=== PATIENT | male | born 1945 | race Caucasian/White ===

== ENCOUNTER 2017-09-06 11:47 | Inpatient (IN) | payer MEDICARE ==
[~2017-09-06 11:47] MED LIST: ISOVUE-370 76%-LOCM 1 ML ONE
[2017-09-06 12:53] LABS: Troponin I 0.081 ng/mL (< 0.028)
--- NOTE | 2017-09-06 13:17 | CT ---
CT ARTERIOGRAM CHEST WITH IV CONTRAST AND 3D MIP IMAGING: History Chest pain. Dyspnea. FINDINGS: There is good contrast opacification of the pulmonary arteries and thoracic aorta with normal branch ing of the great vessels. Calcifications are present within the arterial structures. There is atel ectasis and parenchymal scarring involving each lung. No pneumothorax or mediastinal adenopathy are apparent. Within the partially visualized upper abdomen, cysts throughout the liver are similar to prior CT from 2012. IMPRESSION: 1. No CT evidence of pulmonary embolus. 2. Atherosclerosis. POS: [facility]
[2017-09-06] MEDS ORDERED: cefTRIAXone\\ROCEPHIN 1 GM VIAL ONE (14:22)
[2017-09-06] MEDS ORDERED: Sodium Chloride 0.9% 100 ML ONE (14:22)
[2017-09-06 14:29] LABS: Lactic Acid - Sepsis 1.6 mmol/L (0.5-2.2)
[2017-09-06 14:39] LABS: Troponin I 0.058 ng/mL (< 0.028)
[2017-09-06] MEDS ORDERED: Ondansetron ODT 4 MG TAB SL PRN (16:27)
[2017-09-06] MEDS ORDERED: Sodium Chloride 0.9% 1,000 ML IV SCH (16:27)
[2017-09-06] MEDS ORDERED: Ondansetron HCl/PF 4 MG/2 ML Vial IVP PRN ×2 (16:27→16:39)
[2017-09-06] MEDS ORDERED: Bisacodyl 5 MG TAB PO PRN (16:39)
[2017-09-06] MEDS ORDERED: Acetaminophen 325 MG TAB PO PRN (16:39)
[2017-09-06] MEDS ORDERED: Calcium Carbonate 500 MG ChewTAB PO PRN (16:39)
--- NOTE | 2017-09-06 17:34 | HP ---
PRIMARY CARE PHYSICIAN: Dr. Stafford. TELEVISION REPAIR TEACHER: Dr. Kelly. CHIEF COMPLAINT: Weakness. HISTORY OF PRESENT ILLNESS: This is a 72-year-old pleasant gentleman, who was apparently in usual s figueroa of health until about last 2 days, he was doing pretty much which he does on a regular basis, w hich includes driving to the [email or web address], but does not walk much. He can take a bath by himself and fee d himself. He was in his usual state of health when he started having some hallucinations of a kalyan le boy running around, that was on and off, and then he started feeling more weak yesterday. When h debra started to get up from a chair, he fell on the carpet and could not get up. His tried to hel p him up and he pushed himself up as well, giving rise to some carpet smith and some lacerations on his arms and legs. The family was concerned, and hence, he was brought to [facility] where his basic workup was done, which revealed a creatinine of 2.02, and a CTA angiogram was done, which jaimie wed no pulmonary embolism. The patient was transferred to our health facility for evaluation of the weakness. Patient says this is the first time this has happened. PAST MEDICAL HISTORY: Significant for coronary artery disease, status post stent in 2009. Patient also had a history of cardiac arrest in 2009, peripheral vascular disease with stents in both femora l arteries, congestive heart failure, hyperlipidemia, hypertension, obesity, obstructive sleep apnea , and CODP. ALLERGIES: NAPROXEN. PAST SURGICAL HISTORY: As mentioned above, had 2 stents in the coronaries and 2 stents 1 each in th e peripheral femoral vein artery. MEDICATIONS: [place], allopurinol, lisinopril, metolazone, pravastatin, prednisone, Coreg, Plavix. FAMILY HISTORY: Negative for diabetes and hypertension. SOCIAL HISTORY: The patient used to be a long-term smoker, has switched to E-cigarettes for the las t couple of years. Does not drink or do any recreational drugs. Has a very sedentary lifestyle. Sonia conrad also has started having sacral wound ulcers, because of his sedentary lifestyle and has wound care on and off for that. REVIEW OF SYSTEMS: Significant for the weakness and hallucinations; otherwise, no fever, no chills, no headache, no eye pain, no hearing loss, no latencies. No cough, no chest pain, no diarrhea, dys uria or polyuria. No memory or mood changes. No neck pain. PHYSICAL EXAMINATION: VITAL SIGNS: Blood pressure is 140/62; pulse is 119; in the ER was breathing initially fast at 32, right now has come down and breathing at 18; afebrile. GENERAL: Patient is lying in bed in mild distress, because of the pain from the carpet smith. HEENT: Atraumatic, normocephalic. Pupils equally round and reactive to light. Extraocular movemen ts intact. Mucous membranes moist. NECK: No JVD. CHEST: Breath sounds heard. Some bibasilar rales. HEART: S1, S2 normal. No murmurs or gallops. ABDOMEN: Soft, obese. EXTREMITIES: No cyanosis, clubbing, or edema. SKIN: Superficial skin tears are seen, covered with bandages, he has got it since above carpet burn s on both the knees. NEUROLOGIC: He is alert, awake, oriented. No cranial deficits. No sensorimotor deficits. LABORATORY DATA: WBC count is 18, hemoglobin is 14, neutrophils are 79. D-dimer is 6.6. CTA was n egative. Potassium is 4.5, creatinine 2.02. Lactic acid is 1.4. Troponin 0.08. BNP is 202. UA i s negative. UDS positive for opiates. Flu is negative. ASSESSMENT AND PLAN: 1. Systemic inflammatory response syndrome, possibly secondary to infection, etiology is unknown an d a combination of dehydration and acute renal failure. We will give the patient some IV fluids, to gently hydrate the patient. We will hold the diuretics for now and get an echocardiogram. 2. Leukocytosis, possibly secondary to prednisone use, cannot rule out infection at this moment as there is left shift. We will empirically treat with IV vancomycin. Possible source could be the de cubitus ulcers and multiple skin tears. We will do vancomycin and Levaquin for now and do blood cul tures. 3. Acute renal failure secondary to possible dehydration and diuretic use. Hold diuretics and gent ly hydrate the patient. 4. Elevated troponin, possibly secondary to demand ischemia. We will trend troponins and consult C ardiology if needed. 5. History of congestive heart failure. Patient is not short of breath right now. We will do echo cardiogram. 6. Hallucinations. We will give the patient Zyprexa. We will also do CT scan of the head. 7. Chronic obstructive pulmonary disease. We will put the patient on nebulizer treatments. 8. Morbid obesity with possible obstructive sleep apnea, outpatient sleep study. 9. Sacral wound appears to be not infected with no drainage. I will get Wound Care involved. 10. Lovenox for deep venous thrombosis prophylaxis. I will follow the labs and do the needful.
[2017-09-06 17:43] LABS: Troponin I 0.076 ng/mL (< 0.028)
[2017-09-06] MEDS ORDERED: OLANZapine 2.5 MG TAB PO SCH (18:00)
[2017-09-06] MEDS: Sodium Chloride 0.9% 1,000 ML IV SCH (19:16)
[2017-09-06 20:35] LABS: Troponin I 0.053 ng/mL (< 0.028)
[2017-09-06] MEDS ORDERED: Vancomycin HCl 1 GM in Sodium Chloride 0.9% 250 ML 250 ML IVPB SCH (21:00)
[2017-09-06] MEDS ORDERED: Vancomycin HCl 1.5 GM in Sodium Chloride 0.9% 250 ML 300 ML IVPB SCH (22:00)
[2017-09-06] MEDS: HYDROcodone/Acetaminophen 5/325 mg Tablet PO PRN (22:31)
[2017-09-06 23:16] LABS: Troponin I 0.045 ng/mL (< 0.028)
[2017-09-07] MEDS: HYDROcodone/Acetaminophen 5/325 mg Tablet PO PRN ×4 (03:34→23:34)
[2017-09-07 06:41] LABS: #Basophils 0.1 thou/uL (0.0-0.2); #Eosinphils 0.1 thou/uL (0.0-0.7); #Lymphocytes 1.8 thou/uL (1.20-3.40); #Monocytes 1.7 thou/uL (0.11-0.59); #Neutrophils 13.5 thou/uL (1.40-6.50); %Basophils 0.3 % (0.0-1.0); %Eosinophils 0.4 % (0.0-10.0); %Lymphocytes 10.2 % (21.0-51.0); %Monocytes 10.1 % (0.0-10.0); Hematocrit 46.3 % (42.0-52.0); Mean Platelet Volume 8.5 fL (7.4-10.4); Red Blood Cell (RBC) Count 4.97 mill/uL (4.70-6.10); White Blood Cell (WBC) Count 17.1 thou/uL (4.8-10.8)
[2017-09-07 07:02] LABS: Anion Gap 16 mmol/L (10-20); BUN (Urea Nitrogen) 22 mg/dL (8.4-25.7); BUN/Creatinine Ratio 13.84; Calc. Creatinine Clearance 68 mL/min (70-130); Calcium 9.9 mg/dL (7.8-10.44); Carbon Dioxide 22 mmol/L (23-31); Chloride 103 mmol/L (98-107); Estimated GFR-MDRD 43; Phosphorus 2.6 mg/dL (2.3-4.7)
[2017-09-07] MEDS ORDERED: OLANZapine 2.5 MG TAB PO SCH (09:00)
[2017-09-07] MEDS: Enoxaparin Sodium 30 MG/0.3 ML SYRINGE SC SCH (09:28)
[2017-09-07] MEDS: Sodium Chloride 0.9% 1,000 ML IV SCH ×2 (11:43→13:11)
--- NOTE | 2017-09-07 12:24 | MRI ---
NONCONTRAST ENHANCED MRI IMAGES BRAIN: HISTORY: Fall. Altered mental status. Hypertension. Hallucinations. FINDINGS: Multiplanar, multisequence noncontrast-enhanced MRI images of the brain demonstrate no evidence of a cute intracranial masses, hemorrhages, strokes, or contusions seen. No evidence of sub- or epidural hematoma. Normal flow voids are seen in the major intracranial vessels. No areas of T2 signal inc reased changes seen. IMPRESSION: Normal noncontrast-enhanced MRI images of the brain with no significant evidence of intracranial pat hology seen. POS: [facility]
[2017-09-07] MEDS: Allopurinol 100 MG TAB PO SCH ×2 (16:46→21:41)
--- NOTE | 2017-09-07 16:54 | PDOC.PN ---
- Subjective Encounter Start Date: 09/07/17 Encounter Start Time: 16:50 still hallucinating feels stronger today no n/v no cp/sob - Objective MAR Reviewed: Yes Vital Signs & Weight: Vital Signs (12 hours) Temp Pulse Pulse Pulse Resp BP BP 09/07/17 14:27 116 H 120 H 168/98 H 158/110 H 09/07/17 13:15 19 09/07/17 12:55 99.2 F 110 H 26 H 09/07/17 08:58 98.3 F 109 H BP Pulse Ox 09/07/17 14:27 09/07/17 13:15 96 09/07/17 12:55 135/88 91 L 09/07/17 08:58 164/91 H 96 I&O: 09/06/17 09/07/17 09/08/17 06:59 06:59 06:59 Intake Total 1715 Balance 1715 Result Diagrams: 09/07/17 05:54 09/07/17 05:54 Additional Labs: Accuchecks 09/06/17 21:16 POC Glucose 125 H Phys Exam - Physical Examination Constitutional: NAD HEENT: PERRLA Neck: no JVD Respiratory: no wheezing Cardiovascular: no significant murmur Gastrointestinal: soft Musculoskeletal: pulses present Neurological: normal sensation Psychiatric: A&O x 3 Dx/Plan (1) ARF (acute renal failure) Status: Acute (2) Weakness Code(s): R53.1 - WEAKNESS Status: Acute (3) COPD (chronic obstructive pulmonary disease) Status: Acute (4) Decubital ulcer Code(s): L89.90 - PRESSURE ULCER OF UNSPECIFIED SITE, UNSPECIFIED STAGE Status : Acute (5) Tinea cruris Code(s): B35.6 - TINEA CRURIS Status: Acute (6) SIRS (systemic inflammatory response syndrome) Code(s): R65.10 - SIRS OF NON-INFECTIOUS ORIGIN W/O ACUTE ORGAN DYSFUNCTION Status: Acute (7) Bacteremia Code(s): R78.81 - BACTEREMIA Status: Acute (8) Leucocytosis Code(s): D72.829 - ELEVATED WHITE BLOOD CELL COUNT, UNSPECIFIED Status: Acute (9) Elevated troponin Code(s): R74.8 - ABNORMAL LEVELS OF OTHER SERUM ENZYMES Status: Acute (10) Obesity (BMI 30.0-34.9) Code(s): E66.9 - OBESITY, UNSPECIFIED Status: Acute (11) Hallucination Code(s): R44.3 - HALLUCINATIONS, UNSPECIFIED Status: Acute - Plan * increase dose of zyprexa to 5 mg daily * add diflucan * cont abx for 2 more days * pt/ot * f/u echo
[2017-09-07] MEDS ORDERED: HumaLOG 300 UNITS/3 ML VIAL SC PRN (17:35)
[2017-09-07] MEDS ORDERED: Dextrose 5% in Water 1,000 ML IV PRN (17:35)
[2017-09-07] MEDS ORDERED: Dextrose 50% Abboject 50 ML SYRINGE SLOW IVP PRN (17:35)
[2017-09-07] MEDS: OLANZapine 2.5 MG TAB PO SCH (17:56)
[2017-09-07] MEDS ORDERED: Zolpidem Tartrate 5 MG TAB PO SCH (21:30)
[2017-09-07] MEDS: Pravastatin Sodium 40 MG TAB PO SCH (21:41)
[2017-09-07] MEDS: Nystatin Powder 15 GM BOT TOP SCH (21:42)
[2017-09-07] MEDS: Carvedilol 6.25 MG TAB PO SCH (21:42)
[2017-09-07] MEDS: Vancomycin HCl 1.75 GM in Sodium Chloride 0.9% 500 ML IVPB SCH (23:22)
[2017-09-08 05:58] LABS: #Basophils 0.1 thou/uL (0.0-0.2); #Eosinphils 0.2 thou/uL (0.0-0.7); #Lymphocytes 1.1 thou/uL (1.20-3.40); #Monocytes 1.2 thou/uL (0.11-0.59); #Neutrophils 8.2 thou/uL (1.40-6.50); %Basophils 0.7 % (0.0-1.0); %Eosinophils 1.9 % (0.0-10.0); %Lymphocytes 10.3 % (21.0-51.0); %Monocytes 10.9 % (0.0-10.0); Hematocrit 40.2 % (42.0-52.0); Mean Platelet Volume 8.3 fL (7.4-10.4); Red Blood Cell (RBC) Count 4.24 mill/uL (4.70-6.10); White Blood Cell (WBC) Count 10.8 thou/uL (4.8-10.8)
[2017-09-08 06:18] LABS: Anion Gap 12 mmol/L (10-20); BUN (Urea Nitrogen) 25 mg/dL (8.4-25.7); BUN/Creatinine Ratio 17.86; Calc. Creatinine Clearance 77 mL/min (70-130); Calcium 9.5 mg/dL (7.8-10.44); Carbon Dioxide 25 mmol/L (23-31); Chloride 103 mmol/L (98-107); Estimated GFR-MDRD 50; Phosphorus 3.3 mg/dL (2.3-4.7)
[2017-09-08] MEDS ORDERED: predniSONE 5 MG TAB PO SCH (09:00)
[2017-09-08] MEDS: Allopurinol 100 MG TAB PO SCH ×3 (09:15→21:20)
[2017-09-08] MEDS: Lisinopril 2.5 MG TAB PO SCH (09:15)
[2017-09-08] MEDS: Fluconazole 100 MG TAB PO SCH (09:15)
[2017-09-08] MEDS: predniSONE 5 MG TAB PO SCH (09:16)
[2017-09-08] MEDS: Clopidogrel Bisulfate 75 MG TAB PO SCH (09:16)
[2017-09-08] MEDS: Carvedilol 6.25 MG TAB PO SCH ×2 (09:16→21:20)
[2017-09-08] MEDS: Enoxaparin Sodium 30 MG/0.3 ML SYRINGE SC SCH (09:17)
[2017-09-08] MEDS: Nystatin Powder 15 GM BOT TOP SCH ×2 (09:24→21:24)
--- NOTE | 2017-09-08 13:01 | PDOC.PN ---
- Subjective Encounter Start Date: 09/08/17 Encounter Start Time: 12:59 doing better but still feels weak still having visual hallucinations no n/v no f/c - Objective MAR Reviewed: Yes Vital Signs & Weight: Vital Signs (12 hours) Temp Pulse Resp BP BP Pulse Ox 09/08/17 09:15 110 H 164/97 H 09/08/17 09:14 98.7 F 09/08/17 08:20 110 H 18 164/97 H 95 09/08/17 04:00 93 18 136/82 97 Weight Weight 270 lb 14.4 oz I&O: 09/07/17 09/08/17 09/09/17 06:59 06:59 06:59 Intake Total 1715 3110 Output Total 420 Balance 1715 2690 Result Diagrams: 09/08/17 05:27 09/08/17 05:27 Additional Labs: Accuchecks 09/08/17 09/08/17 09/07/17 11:24 06:46 21:06 POC Glucose 156 H 214 H 128 H 09/07/17 09/07/17 17:14 11:19 POC Glucose 174 H 151 H Phys Exam - Physical Examination Constitutional: NAD HEENT: moist MMs Neck: no JVD Respiratory: no rales Cardiovascular: no significant murmur Gastrointestinal: non-tender Musculoskeletal: pulses present Neurological: moves all 4 limbs Psychiatric: A&O x 3 Deviation from normal: e/o rug smith on knee and elbow. sacral decub ulcer Dx/Plan (1) ARF (acute renal failure) Status: Acute (2) Weakness Code(s): R53.1 - WEAKNESS Status: Acute (3) COPD (chronic obstructive pulmonary disease) Status: Acute (4) Decubital ulcer Code(s): L89.90 - PRESSURE ULCER OF UNSPECIFIED SITE, UNSPECIFIED STAGE Status : Acute (5) Tinea cruris Code(s): B35.6 - TINEA CRURIS Status: Acute (6) SIRS (systemic inflammatory response syndrome) Code(s): R65.10 - SIRS OF NON-INFECTIOUS ORIGIN W/O ACUTE ORGAN DYSFUNCTION Status: Acute (7) Bacteremia Code(s): R78.81 - BACTEREMIA Status: Acute (8) Leucocytosis Code(s): D72.829 - ELEVATED WHITE BLOOD CELL COUNT, UNSPECIFIED Status: Resolved (9) Elevated troponin Code(s): R74.8 - ABNORMAL LEVELS OF OTHER SERUM ENZYMES Status: Acute (10) Obesity (BMI 30.0-34.9) Code(s): E66.9 - OBESITY, UNSPECIFIED Status: Acute (11) Hallucination Code(s): R44.3 - HALLUCINATIONS, UNSPECIFIED Status: Acute - Plan * elevated wbc resolved with emperic abx rx. culture not conclusive. cont abx for one more day * cr improving * cont pt/ot * recommend out pt pscyh eval if hallucinations persist * disposition- most likely home with * cont wound care * case mx to help with out pt wound care
[2017-09-08] MEDS: Sodium Chloride 0.9% 1,000 ML IV SCH (17:56)
[2017-09-08] MEDS: OLANZapine 2.5 MG TAB PO SCH (18:00)
[2017-09-08] MEDS: Pravastatin Sodium 40 MG TAB PO SCH (21:20)
[2017-09-08] MEDS: HYDROcodone/Acetaminophen 5/325 mg Tablet PO PRN (21:21)
[2017-09-08 21:33] LABS: Vancomycin, Trough 10.6 ug/mL
[2017-09-08] MEDS: Vancomycin HCl 1.75 GM in Sodium Chloride 0.9% 500 ML IVPB SCH (23:48)
[2017-09-09] MEDS: Sodium Chloride 0.9% 1,000 ML IV SCH ×2 (00:10→08:12)
[2017-09-09 05:34] LABS: #Eosinphils 0.1 thou/uL (0.0-0.7); #Monocytes 0.9 thou/uL (0.11-0.59); #Neutrophils 6.9 thou/uL (1.40-6.50); %Basophils 0.5 % (0.0-1.0); %Eosinophils 1.5 % (0.0-10.0); %Lymphocytes 11.1 % (21.0-51.0); %Monocytes 10.2 % (0.0-10.0); Hematocrit 38.8 % (42.0-52.0); Mean Platelet Volume 8.3 fL (7.4-10.4); Red Blood Cell (RBC) Count 4.03 mill/uL (4.70-6.10)
[2017-09-09 05:52] LABS: Anion Gap 12 mmol/L (10-20); BUN (Urea Nitrogen) 26 mg/dL (8.4-25.7); BUN/Creatinine Ratio 18.71; Calc. Creatinine Clearance 82 mL/min (70-130); Calcium 9.5 mg/dL (7.8-10.44); Carbon Dioxide 24 mmol/L (23-31); Chloride 105 mmol/L (98-107); Estimated GFR-MDRD 50; Phosphorus 2.6 mg/dL (2.3-4.7)
[2017-09-09] MEDS: HYDROcodone/Acetaminophen 5/325 mg Tablet PO PRN ×3 (05:59→21:23)
--- NOTE | 2017-09-09 06:41 | EKG ---
Test Reason : Blood Pressure : / mmHG Vent. Rate : 101 BPM Atrial Rate : 101 BPM P-R Int : 232 ms QRS Dur : 088 ms QT Int : 372 ms P-R-T Axes : 074 101 045 degrees QTc Int : 482 ms Sinus tachycardia with 1st degree A-V block with occasional Premature ventricular complexes Possible Right ventricular hypertrophy Nonspecific ST abnormality Abnormal ECG Confirmed by VINEET LUU, ANILA ([id number]), deputy editor in chief BETTY MEI ([id number]) on 09/09/2017 6:41:22 AM Referred By: Confirmed By:ANILA MANLEY MD
[2017-09-09] MEDS: Enoxaparin Sodium 30 MG/0.3 ML SYRINGE SC SCH (09:24)
[2017-09-09] MEDS: Fluconazole 100 MG TAB PO SCH (09:29)
[2017-09-09] MEDS: predniSONE 5 MG TAB PO SCH (09:30)
[2017-09-09] MEDS: Clopidogrel Bisulfate 75 MG TAB PO SCH (09:30)
[2017-09-09] MEDS: Carvedilol 6.25 MG TAB PO SCH ×2 (09:30→21:15)
[2017-09-09] MEDS: Allopurinol 100 MG TAB PO SCH ×3 (09:30→21:15)
[2017-09-09] MEDS: Lisinopril 2.5 MG TAB PO SCH (09:30)
[2017-09-09] MEDS: Nystatin Powder 15 GM BOT TOP SCH ×2 (09:31→21:16)
--- NOTE | 2017-09-09 18:53 | PDOC.PN ---
- Subjective Encounter Start Date: 09/09/17 Encounter Start Time: 11:30 Patient seen and examined. No new complaints. No overnight events. Feels better. No Hallucinations - Objective MAR Reviewed: Yes Vital Signs & Weight: Vital Signs (12 hours) Temp Pulse Pulse Resp BP BP BP 09/09/17 16:11 97.7 F 16 152/77 H 09/09/17 15:45 97.7 F 82 20 129/65 09/09/17 14:02 91 24 H 09/09/17 12:44 97.8 F 81 16 106/56 L 09/09/17 10:24 91 122/71 09/09/17 09:30 93 120/71 09/09/17 08:05 99 F 93 18 120/71 09/09/17 07:14 99 20 Pulse Ox 09/09/17 16:11 100 09/09/17 15:45 98 09/09/17 14:02 09/09/17 12:44 94 L 09/09/17 10:24 09/09/17 09:30 09/09/17 08:05 92 L 09/09/17 07:14 95 Weight Admit Weight 259 lb 3.2 oz Weight 272 lb 11.2 oz I&O: 09/08/17 09/09/17 09/10/17 06:59 06:59 06:59 Intake Total 3110 2560 1077 Output Total 420 2270 500 Balance 2690 290 577 Result Diagrams: 09/09/17 05:14 09/09/17 05:14 Additional Labs: Accuchecks 09/09/17 09/08/17 06:37 21:41 POC Glucose 133 H 154 H EKG Reviewed by me: Yes (Tele SR) Phys Exam - Physical Examination Constitutional: NAD Respiratory: no wheezing, no rhonchi Cardiovascular: RRR, no rub Gastrointestinal: soft, non-tender, positive bowel sounds Neurological: moves all 4 limbs Dx/Plan (1) SIRS (systemic inflammatory response syndrome) Code(s): R65.10 - SIRS OF NON-INFECTIOUS ORIGIN W/O ACUTE ORGAN DYSFUNCTION Status: Acute Comment: ?bacteremia (2) Toxic metabolic encephalopathy Code(s): G92 - TOXIC ENCEPHALOPATHY Status: Acute (3) Obesity (BMI 30-39.9) Code(s): E66.9 - OBESITY, UNSPECIFIED Status: Acute (4) CRAIG (acute kidney injury) Code(s): N17.9 - ACUTE KIDNEY FAILURE, UNSPECIFIED Status: Acute Comment: CKD 3 - Plan cont current plan of care, plan discussed w/ family, continue antibiotics, DVT proph w/lovenox * DC Zyprexa - No hallucinations now * Cont Vancomycin * Change Levaquin to Ceftriaxone * Consult ID for ?bacteremia * Cont other meds as below Review of Systems - Review of Systems Respiratory: negative: Cough, Dry, Shortness of Breath, Hemoptysis, SOB with Excertion, Pleuritic Pain, Sputum, Wheezing Cardiovascular: negative: Chest Pain, Palpitations, Orthopnea, Paroxysmal Noc. Dyspnea, Edema, Light Headedness, Other - Medications/Allergies Allergies/Adverse Reactions: Allergies Allergy/AdvReac Type Severity Reaction Status Date / Time naproxen Allergy Verified 09/06/17 19:05 Medications: Current Medications Acetaminophen (Tylenol) 650 mg PO Q4H PRN PRN Reason: Headache/Fever or Pain Hydrocodone Bitart/Acetaminophen ([place] 5/325) 1 tab PO Q4H PRN PRN Reason: Moderate Pain (4-6) Last Admin: 09/09/17 12:48 Dose: 1 tab Albuterol/Ipratropium (Duoneb) 3 ml NEB [id number] [facility] Last Admin: 09/09/17 14:02 Dose: 3 ml Allopurinol (Zyloprim) 100 mg PO TID [facility] Last Admin: 09/09/17 15:54 Dose: 100 mg Bisacodyl (Dulcolax) 10 mg PO DAILYPRN PRN PRN Reason: Constipation Calcium Carbonate (Tums) 1,000 mg PO Q4H PRN PRN Reason: Heartburn or Indigestion Carvedilol (Coreg) 6.25 mg PO BID [facility] Last Admin: 09/09/17 09:30 Dose: 6.25 mg Clopidogrel Bisulfate (Plavix) 75 mg PO DAILY [facility] Last Admin: 09/09/17 09:30 Dose: 75 mg Dextrose/Water (Dextrose 50%) 25 gm SLOW IVP PRN PRN PRN Reason: Hypoglycemia Enoxaparin Sodium (Lovenox) 30 mg SC 0900 [facility] Last Admin: 09/09/17 09:24 Dose: 30 mg Fluconazole (Diflucan) 100 mg PO DAILY [facility] Last Admin: 09/09/17 09:29 Dose: 100 mg Glucagon (Glucagon) 1 mg IM PRN PRN PRN Reason: Hypoglycemia Hydralazine HCl (Apresoline) 10 mg SLOW IVP Q4H PRN PRN Reason: SBP Greater Than 180 Vancomycin HCl 1.75 gm/ Sodium (Chloride) 500 mls @ 250 mls/hr IVPB 2200 [facility] Last Admin: 09/08/17 23:48 Dose: 500 mls Levofloxacin 750 mg/ Device 150 mls @ 100 mls/hr IVPB 1500 [facility] Last Admin: 09/09/17 15:54 Dose: 150 mls Dextrose/Water (D5w) 1,000 mls @ 0 mls/hr IV .Q0M PRN; As Directed PRN Reason: Hypoglycemia Insulin Human Lispro (Humalog) 0 units SC .MILD SLIDING SCALE PRN PRN Reason: Mild Correctional Scale Last Admin: 09/09/17 18:38 Dose: 2 unit Lisinopril (Zestril) 2.5 mg PO DAILY [facility] Last Admin: 09/09/17 09:30 Dose: 2.5 mg Miscellaneous Medication (Pharmacy To Dose) 1 each IVPB PRN PRN PRN Reason: . Nystatin (Mycostatin Powder) 1 gm TOP BID [facility] Last Admin: 09/09/17 09:31 Dose: 1 gm Ondansetron HCl (Zofran) 4 mg IVP Q6H PRN PRN Reason: Nausea/Vomiting Polyethylene Glycol (Miralax) 17 gm PO DAILY [facility] Pravastatin Sodium (Pravachol) 40 mg PO HS [facility] Last Admin: 09/08/17 21:20 Dose: 40 mg Prednisone (Prednisone) 2.5 mg PO DAILY [facility] Last Admin: 09/09/17 09:30 Dose: 2.5 mg Senna/Docusate Sodium (Senokot S) 1 tab PO BID [facility]
[2017-09-09 21:16] LABS: Vancomycin, Trough 14.7 ug/mL
[2017-09-09] MEDS: Senokot S 8.6-50 MG TAB PO SCH (21:16)
[2017-09-09] MEDS: Pravastatin Sodium 40 MG TAB PO SCH (21:16)
[2017-09-09] MEDS: Vancomycin HCl 1.75 GM in Sodium Chloride 0.9% 500 ML IVPB SCH (22:57)
[2017-09-10] MEDS ORDERED: cefTRIAXone\\ROCEPHIN 1 GM in Sodium Chloride 0.9% 100 ML IVPB SCH (07:00)
[2017-09-10] MEDS: OLANZapine 2.5 MG TAB PO SCH (09:50)
[2017-09-10] MEDS: Fluconazole 100 MG TAB PO SCH (09:50)
[2017-09-10] MEDS: predniSONE 5 MG TAB PO SCH (09:51)
[2017-09-10] MEDS: Clopidogrel Bisulfate 75 MG TAB PO SCH (09:51)
[2017-09-10] MEDS: Allopurinol 100 MG TAB PO SCH ×3 (09:51→21:16)
[2017-09-10] MEDS: Carvedilol 6.25 MG TAB PO SCH ×2 (09:51→21:16)
[2017-09-10] MEDS: Senokot S 8.6-50 MG TAB PO SCH ×2 (09:51→21:16)
[2017-09-10] MEDS: Lisinopril 2.5 MG TAB PO SCH (09:53)
[2017-09-10] MEDS: Enoxaparin Sodium 30 MG/0.3 ML SYRINGE SC SCH (09:53)
[2017-09-10] MEDS: Polyethylene Glycol 3350 17 GM Packet PO SCH (10:06)
[2017-09-10] MEDS: HYDROcodone/Acetaminophen 5/325 mg Tablet PO PRN (10:07)
[2017-09-10] MEDS: Nystatin Powder 15 GM BOT TOP SCH ×2 (10:08→21:17)
--- NOTE | 2017-09-10 13:00 | PDOC.PN ---
- Subjective Encounter Start Date: 09/10/17 Encounter Start Time: 10:30 Patient seen and examined. No new complaints. Hallucinations overnight. - Objective MAR Reviewed: Yes Vital Signs & Weight: Vital Signs (12 hours) Temp Pulse Resp BP BP BP Pulse Ox 09/10/17 12:28 98.4 F 95 20 121/65 97 09/10/17 10:56 89 24 H 97 09/10/17 09:53 98 09/10/17 09:51 162/88 H 09/10/17 07:25 98.2 F 98 16 97 09/10/17 07:22 98.2 F 98 16 162/88 H 97 09/10/17 06:44 98 20 98 09/10/17 04:00 98.6 F 91 18 128/85 92 L Weight Admit Weight 259 lb 3.2 oz Weight 275 lb I&O: 09/09/17 09/10/17 09/11/17 06:59 06:59 06:59 Intake Total 2560 1527 Output Total 2270 1000 Balance 290 527 Result Diagrams: 09/09/17 05:14 09/09/17 05:14 Additional Labs: Accuchecks 09/10/17 09/10/17 09/09/17 11:27 05:57 21:01 POC Glucose 178 H 150 H 154 H 09/09/17 09/09/17 16:53 11:43 POC Glucose 173 H 179 H EKG Reviewed by me: Yes (Tele SR) Phys Exam - Physical Examination Constitutional: NAD Respiratory: no wheezing, no rhonchi Cardiovascular: RRR, no rub Gastrointestinal: soft, non-tender, positive bowel sounds Musculoskeletal: edema present several skin lesions Neurological: non-focal, moves all 4 limbs Dx/Plan (1) Sepsis due to cellulitis Code(s): L03.90 - CELLULITIS, UNSPECIFIED; A41.9 - SEPSIS, UNSPECIFIED ORGANISM Status: Acute Comment: with acute organ dysfunction (Encephalopathy) (2) Infected ulcer of skin Code(s): L98.499 - NON-PRESSURE CHRONIC ULCER OF SKIN OF SITES W UNSP SEVERITY; L08.9 - LOCAL INFECTION OF THE SKIN AND SUBCUTANEOUS TISSUE, UNSP Status: Acute (3) Toxic metabolic encephalopathy Code(s): G92 - TOXIC ENCEPHALOPATHY Status: Acute (4) Obesity (BMI 30-39.9) Code(s): E66.9 - OBESITY, UNSPECIFIED Status: Acute (5) CRAIG (acute kidney injury) Code(s): N17.9 - ACUTE KIDNEY FAILURE, UNSPECIFIED Status: Acute Comment: CKD 3 (6) Other issues per previous notes - Plan cont current plan of care, PT/OT, DVT proph w/lovenox, DVT proph w/SCDs * Dc Fluconazole * AM labs * Cont wound care * I d/w Dr Bess - Tomas recommended Levaquin x 1 week * Resume Lasix in AM * Dc [place] in AM * Cont to monitor * DC Vancomycin * Consult Neurology for hallucinations - MRI brain negative - Will restart Zyprexa (Was started on admission for hallucinations - I dced it yesterday) Review of Systems - Review of Systems Constitutional: negative: Fever, Chills, Sweats, Weakness, Malaise, Other Respiratory: negative: Cough, Dry, Shortness of Breath, Hemoptysis, SOB with Excertion, Pleuritic Pain, Sputum, Wheezing Cardiovascular: negative: Chest Pain, Palpitations, Orthopnea, Paroxysmal Noc. Dyspnea, Edema, Light Headedness, Other - Medications/Allergies Allergies/Adverse Reactions: Allergies Allergy/AdvReac Type Severity Reaction Status Date / Time naproxen Allergy Verified 09/06/17 19:05 Medications: Current Medications Acetaminophen (Tylenol) 650 mg PO Q4H PRN PRN Reason: Headache/Fever or Pain Hydrocodone Bitart/Acetaminophen ([place] 5/325) 1 tab PO Q4H PRN PRN Reason: Moderate Pain (4-6) Last Admin: 09/10/17 10:07 Dose: 1 tab Albuterol/Ipratropium (Duoneb) 3 ml NEB [id number] [facility] Last Admin: 09/10/17 10:56 Dose: 3 ml Allopurinol (Zyloprim) 100 mg PO TID [facility] Last Admin: 09/10/17 09:51 Dose: 100 mg Bisacodyl (Dulcolax) 10 mg PO DAILYPRN PRN PRN Reason: Constipation Calcium Carbonate (Tums) 1,000 mg PO Q4H PRN PRN Reason: Heartburn or Indigestion Carvedilol (Coreg) 6.25 mg PO BID [facility] Last Admin: 09/10/17 09:51 Dose: 6.25 mg Clopidogrel Bisulfate (Plavix) 75 mg PO DAILY [facility] Last Admin: 09/10/17 09:51 Dose: 75 mg Dextrose/Water (Dextrose 50%) 25 gm SLOW IVP PRN PRN PRN Reason: Hypoglycemia Enoxaparin Sodium (Lovenox) 30 mg SC 0900 [facility] Last Admin: 09/10/17 09:53 Dose: 30 mg Fluconazole (Diflucan) 100 mg PO DAILY [facility] Last Admin: 09/10/17 09:50 Dose: 100 mg Glucagon (Glucagon) 1 mg IM PRN PRN PRN Reason: Hypoglycemia Hydralazine HCl (Apresoline) 10 mg SLOW IVP Q4H PRN PRN Reason: SBP Greater Than 180 Dextrose/Water (D5w) 1,000 mls @ 0 mls/hr IV .Q0M PRN; As Directed PRN Reason: Hypoglycemia Levofloxacin 500 mg/ Device 100 mls @ 100 mls/hr IVPB Q24HR [facility] Last Admin: 09/10/17 10:10 Dose: 100 mls Insulin Human Lispro (Humalog) 0 units SC .MILD SLIDING SCALE PRN PRN Reason: Mild Correctional Scale Last Admin: 09/09/17 18:38 Dose: 2 unit Lisinopril (Zestril) 2.5 mg PO DAILY [facility] Last Admin: 09/10/17 09:53 Dose: 2.5 mg Miscellaneous Medication (Pharmacy To Dose) 1 each IVPB PRN PRN PRN Reason: . Nystatin (Mycostatin Powder) 1 gm TOP BID [facility] Last Admin: 09/10/17 10:08 Dose: 1 gm Olanzapine (Zyprexa) 2.5 mg PO DAILY [facility] Last Admin: 09/10/17 09:50 Dose: 2.5 mg Ondansetron HCl (Zofran) 4 mg IVP Q6H PRN PRN Reason: Nausea/Vomiting Polyethylene Glycol (Miralax) 17 gm PO DAILY [facility] Last Admin: 09/10/17 10:06 Dose: 17 gm Pravastatin Sodium (Pravachol) 40 mg PO HS [facility] Last Admin: 09/09/17 21:16 Dose: 40 mg Prednisone (Prednisone) 2.5 mg PO DAILY [facility] Last Admin: 09/10/17 09:51 Dose: 2.5 mg Senna/Docusate Sodium (Senokot S) 1 tab PO BID [facility] Last Admin: 09/10/17 09:51 Dose: 1 tab Sodium Chloride (Flush - Normal Saline) 10 ml IVF Q12HR [facility] Last Admin: 09/10/17 09:52 Dose: Not Given Sodium Chloride (Flush - Normal Saline) 10 ml IVF PRN PRN PRN Reason: Saline Flush
[2017-09-10] MEDS ORDERED: Nitroglycerin 0.4 MG TAB (25 Tab Bottle) PO PRN (13:03)
[2017-09-10] MEDS ORDERED: Senokot 8.6 MG TAB PO PRN (13:03)
[2017-09-10] MEDS ORDERED: HumaLOG 300 UNITS/3 ML VIAL SC PRN (13:05)
[2017-09-10] MEDS: Famotidine 20 MG TAB PO SCH (21:16)
--- NOTE | 2017-09-10 23:16 | CON ---
DATE OF CONSULTATION: 09/10/2017 LOCATION: [address] [place] [address] CONSULTING PHYSICIAN: Dr. Pelaez. REASON FOR CONSULTATION: Altered mental status and hallucinations. HISTORY OF PRESENT ILLNESS: The history is obtained from the chart review and from the patient and his daughter who was present at bedside. The patient is a 72-year-old gentleman with past medical h istory of coronary artery disease, status post stent in 2009, history of cardiac arrest in 2009, per ipheral vascular disease, congestive heart failure, dyslipidemia, hypertension, obesity, obstructive sleep apnea, COPD, who uses oxygen and a breathing machine at home, who according to the family mem bers was doing fine up until admission. All of a sudden, he started having hallucinations, where he saw a little boy running around that was on and off and then he had a fall and he started feeling m ore weak. When he started to get up from a chair, he fell on the carpet and could not get up. He i s back tried to help him up and he pushed himself up as well, giving rise to some cockpit smith and some lacerations on his arms and legs, the family was concerned and so he was brought to the [facility] ER where his basic workup was done, which revealed a creatinine of 2.02. A CT angiogram was d one, which showed no pulmonary embolism. The patient was transferred to our hospital for further ev aluation. The patient was subsequently admitted. He was started on Zyprexa for hallucinations and it helped with his hallucinations. His hallucinati ons resolved, so his Zyprexa was discontinued and then patient started having hallucinations again. The patient is currently being treated with antibiotics for possible infection. He was admitted fo r dehydration and acute renal failure. Infectious Disease has also been consulted. According to th e daughter and the patient, he still has hallucination where he sees people coming out from the clos et, he feels like the next room is contaminated with poop, he sees kittens and cat. They deny any p rior history of hallucinations ever. They deny any psychiatric history. He says that he uses his o xygen and breathing machine regularly without any problem. PAST MEDICAL HISTORY: As mentioned in the HPI. ALLERGIES: NAPROXEN. PAST SURGICAL HISTORY: As mentioned above. MEDICATIONS: Please review the chart. FAMILY HISTORY: Negative for diabetes and hypertension. SOCIAL HISTORY: Long-term smoker, has switched to E-cigarettes for the last couple of years. Does not drink or do any recreational drugs. Sedentary lifestyle. Sacral wound ulcers. REVIEW OF SYSTEMS: As mentioned in the HPI, otherwise negative. PHYSICAL EXAMINATION: VITAL SIGNS: Temperature 98.1. The patient has been afebrile since admission, pulse rate 94, respi ratory rate 18, O2 sat 95% on 2 liter nasal oxygen, blood pressure 123/89. GENERAL: Obese male in no apparent distress. HEENT: Normocephalic, atraumatic. Normal sclerae. NECK: Supple. RESPIRATORY: Clear to auscultation bilaterally. CARDIOVASCULAR: Regular rate and rhythm. NEUROLOGIC: The patient is awake, alert, and oriented. He was able to tell me his name, his date o f . He was able to identify his daughter and tell me her name. He said that he was at [facility] in [place]. He said that the current year is 2016. He said current month was October. Speech and language intact. No aphasia noted. He was able to name objects. He was a ble to follow commands. Cranial nerves: Pupils were equal and reactive to light bilaterally. Extr aocular movements intact. Visual jimenez appear to be grossly intact. No facial droop noted. Motor : Normal tone and bulk. The patient had symmetric strength in his upper and lower extremities and he was able to move all his extremities symmetrically. Sensation intact to fine touch throughout. Gait and Romberg not tested. LABORATORY DATA: CBC with normal white cell count. His white cell count on admission was 17.1. Ch emistry: Normal electrolytes, BUN 26, creatinine 1.39, glucose 138. CK 1379. Troponin elevated. TSH normal. IMAGING: The patient had MRI brain done, which was normal with no significant evidence of intracran ial pathology, no acute intracranial process, no hemorrhage, stroke, contusions, no evidence of subd ural or epidural hematoma. Normal flow voids. IMPRESSION: Hallucinations and altered mental status, likely metabolic in nature, likely due to inf ection, dehydration and acute renal failure. RECOMMENDATIONS: 1. As mentioned before, patient's altered mental status and hallucinations could be due to underlyi ng metabolic issues including renal failure, dehydration and infection. 2. MRI of the brain did not show any evidence of acute intracranial abnormality. 3. The patient has been afebrile with no other signs of meningitis, so lumbar puncture will be of l ow yield. 4. We will get an EEG to rule out any seizure activity. 5. Continue medical management per primary team and Infectious Disease specialist. 6. No other recommendations from neurological standpoint. Please call us with questions.
[2017-09-11 05:36] LABS: #Eosinphils 0.1 thou/uL (0.0-0.7); #Lymphocytes 0.9 thou/uL (1.20-3.40); #Monocytes 0.7 thou/uL (0.11-0.59); #Neutrophils 5.7 thou/uL (1.40-6.50); %Basophils 0.5 % (0.0-1.0); %Eosinophils 1.6 % (0.0-10.0); %Lymphocytes 11.8 % (21.0-51.0); %Monocytes 9.4 % (0.0-10.0); Hematocrit 38.5 % (42.0-52.0); Mean Platelet Volume 8.3 fL (7.4-10.4); Red Blood Cell (RBC) Count 4.05 mill/uL (4.70-6.10); White Blood Cell (WBC) Count 7.4 thou/uL (4.8-10.8)
[2017-09-11 05:58] LABS: Anion Gap 11 mmol/L (10-20); BUN (Urea Nitrogen) 20 mg/dL (8.4-25.7); BUN/Creatinine Ratio 16.53; Calc. Creatinine Clearance 95 mL/min (70-130); Calcium 9.9 mg/dL (7.8-10.44); Carbon Dioxide 27 mmol/L (23-31); Chloride 103 mmol/L (98-107); Estimated GFR-MDRD 59; Phosphorus 2.4 mg/dL (2.3-4.7)
[2017-09-11] MEDS ORDERED: Enoxaparin Sodium 40 MG/0.4 ML SYRINGE SC SCH (09:00)
[2017-09-11] MEDS ORDERED: Furosemide 40 MG TAB PO SCH (09:00)
[2017-09-11] MEDS: Nystatin Powder 15 GM BOT TOP SCH ×2 (10:30→22:29)
[2017-09-11] MEDS: Polyethylene Glycol 3350 17 GM Packet PO SCH (10:31)
[2017-09-11] MEDS: Lisinopril 2.5 MG TAB PO SCH (10:31)
[2017-09-11] MEDS: Clopidogrel Bisulfate 75 MG TAB PO SCH (10:31)
[2017-09-11] MEDS: Allopurinol 100 MG TAB PO SCH ×3 (10:31→22:23)
[2017-09-11] MEDS: Senokot S 8.6-50 MG TAB PO SCH ×2 (10:32→22:24)
[2017-09-11] MEDS: Famotidine 20 MG TAB PO SCH ×2 (10:32→22:24)
[2017-09-11] MEDS: Carvedilol 6.25 MG TAB PO SCH ×2 (10:32→22:23)
[2017-09-11] MEDS: OLANZapine 2.5 MG TAB PO SCH (10:33)
[2017-09-11] MEDS: predniSONE 5 MG TAB PO SCH (10:33)
[2017-09-11] MEDS: HYDROcodone/Acetaminophen 5/325 mg Tablet PO PRN (10:40)
--- NOTE | 2017-09-11 11:40 | PDOC.PN ---
- Subjective Encounter Start Date: 09/11/17 Encounter Start Time: 11:37 Patient seen and examined. Hallucination +. No overnight events - Objective Resuscitation Status: Resuscitation Status FULL:Full Resuscitation MAR Reviewed: Yes Vital Signs & Weight: Vital Signs (12 hours) Temp Pulse Resp BP BP Pulse Ox 09/11/17 10:34 98 20 09/11/17 10:32 160/87 H 09/11/17 10:31 87 160/87 H 09/11/17 08:28 94 L 09/11/17 08:26 90 20 94 L 09/11/17 08:00 98.4 F 87 20 160/87 H 98 09/11/17 04:00 99.2 F 87 18 137/82 92 L Weight Admit Weight 259 lb 3.2 oz Weight 276 lb I&O: 09/10/17 09/11/17 09/12/17 06:59 06:59 06:59 Intake Total 1527 935 Output Total 1000 2850 Balance 527 -1915 Result Diagrams: 09/11/17 05:15 09/11/17 05:16 Additional Labs: Accuchecks 09/11/17 09/10/17 09/10/17 06:17 20:51 16:43 POC Glucose 155 H 173 H 172 H 09/10/17 11:27 POC Glucose 178 H EKG Reviewed by me: Yes (Tele SR/PVCs) Phys Exam - Physical Examination Constitutional: NAD Respiratory: no wheezing, no rhonchi Cardiovascular: RRR, no rub Gastrointestinal: soft, non-tender, positive bowel sounds Neurological: non-focal, moves all 4 limbs Dx/Plan (1) Sepsis due to cellulitis Code(s): L03.90 - CELLULITIS, UNSPECIFIED; A41.9 - SEPSIS, UNSPECIFIED ORGANISM Status: Acute Comment: with acute organ dysfunction (Encephalopathy) (2) Infected ulcer of skin Code(s): L98.499 - NON-PRESSURE CHRONIC ULCER OF SKIN OF SITES W UNSP SEVERITY; L08.9 - LOCAL INFECTION OF THE SKIN AND SUBCUTANEOUS TISSUE, UNSP Status: Acute (3) Toxic metabolic encephalopathy Code(s): G92 - TOXIC ENCEPHALOPATHY Status: Acute Comment: causing fall. (4) Obesity (BMI 30-39.9) Code(s): E66.9 - OBESITY, UNSPECIFIED Status: Acute (5) CRAIG (acute kidney injury) Code(s): N17.9 - ACUTE KIDNEY FAILURE, UNSPECIFIED Status: Acute Comment: CKD 3 (6) Other issues per previous notes Comment: CAD, PVD, h/o PA, h/o Cardiac arrest, Chronic insomnia - takes Ambien daily, Rhabdomyolysis on admission - Plan continue antibiotics, DVT proph w/lovenox, DVT proph w/SCDs * Increase Zyprexa dose for now - Will consider changing to Seroquel if Zyprexa does not help. * AM labs * Cont wound care/therapy/Atbx * Dr Bess recommended Levaquin x 1 week * Cont current meds as below * Neurology input appreciated * Resume Ambien - Patient may be withdrawing from Ambien * Consult ID in AM * Restart Vancomycin Review of Systems - Review of Systems Constitutional: negative: Fever, Chills, Sweats, Weakness, Malaise, Other Respiratory: negative: Cough, Dry, Shortness of Breath, Hemoptysis, SOB with Excertion, Pleuritic Pain, Sputum, Wheezing Cardiovascular: negative: Chest Pain, Palpitations, Orthopnea, Paroxysmal Noc. Dyspnea, Edema, Light Headedness, Other - Medications/Allergies Allergies/Adverse Reactions: Allergies Allergy/AdvReac Type Severity Reaction Status Date / Time naproxen Allergy Verified 09/06/17 19:05 Medications: Current Medications Acetaminophen (Tylenol) 650 mg PO Q4H PRN PRN Reason: Headache/Fever or Pain Hydrocodone Bitart/Acetaminophen ([place] 5/325) 1 tab PO Q4H PRN PRN Reason: Moderate Pain (4-6) Last Admin: 09/11/17 10:40 Dose: 1 tab Albuterol/Ipratropium (Duoneb) 3 ml NEB [id number] [facility] Last Admin: 09/11/17 10:34 Dose: 3 ml Allopurinol (Zyloprim) 100 mg PO TID [facility] Last Admin: 09/11/17 10:31 Dose: 100 mg Bisacodyl (Dulcolax) 10 mg PO DAILYPRN PRN PRN Reason: Constipation Calcium Carbonate (Tums) 1,000 mg PO Q4H PRN PRN Reason: Heartburn or Indigestion Carvedilol (Coreg) 6.25 mg PO BID [facility] Last Admin: 09/11/17 10:32 Dose: 6.25 mg Clopidogrel Bisulfate (Plavix) 75 mg PO DAILY [facility] Last Admin: 09/11/17 10:31 Dose: 75 mg Dextrose/Water (Dextrose 50%) 25 gm SLOW IVP PRN PRN PRN Reason: Hypoglycemia Enoxaparin Sodium (Lovenox) 40 mg SC 0900 [facility] Last Admin: 09/11/17 10:35 Dose: 40 mg Famotidine (Pepcid) 20 mg PO BID [facility] Last Admin: 09/11/17 10:32 Dose: 20 mg Furosemide (Lasix) 40 mg PO DAILY [facility] Last Admin: 09/11/17 10:31 Dose: 40 mg Glucagon (Glucagon) 1 mg IM PRN PRN PRN Reason: Hypoglycemia Hydralazine HCl (Apresoline) 10 mg SLOW IVP Q4H PRN PRN Reason: SBP Greater Than 180 Dextrose/Water (D5w) 1,000 mls @ 0 mls/hr IV .Q0M PRN; As Directed PRN Reason: Hypoglycemia Levofloxacin 500 mg/ Device 100 mls @ 100 mls/hr IVPB Q24HR [facility] Last Admin: 09/11/17 10:41 Dose: 100 mls Insulin Human Lispro (Humalog) 0 units SC .MILD SLIDING SCALE PRN PRN Reason: Mild Correctional Scale Last Admin: 09/09/17 18:38 Dose: 2 unit Insulin Human Lispro (Humalog) 0 units SC .BEDTIME SLIDING SC PRN PRN Reason: Bedtime Correctional Scale Lisinopril (Zestril) 2.5 mg PO DAILY [facility] Last Admin: 09/11/17 10:31 Dose: 2.5 mg Miscellaneous Medication (Pharmacy To Dose) 1 each IVPB PRN PRN PRN Reason: . Nitroglycerin (Nitrostat) 0.4 mg PO Q5MIN PRN PRN Reason: Chest Pain Nystatin (Mycostatin Powder) 1 gm TOP BID [facility] Last Admin: 09/11/17 10:30 Dose: 1 applic Olanzapine (Zyprexa) 5 mg PO DAILY [facility] Olanzapine (Zyprexa) 2.5 mg PO ONE [facility] Ondansetron HCl (Zofran) 4 mg IVP Q6H PRN PRN Reason: Nausea/Vomiting Polyethylene Glycol (Miralax) 17 gm PO DAILY [facility] Last Admin: 09/11/17 10:31 Dose: 17 gm Prednisone (Prednisone) 2.5 mg PO DAILY [facility] Last Admin: 09/11/17 10:33 Dose: 2.5 mg Senna (Senokot) 2 tab PO HSPRN PRN PRN Reason: Constipation Senna/Docusate Sodium (Senokot S) 1 tab PO BID [facility] Last Admin: 09/11/17 10:32 Dose: 1 tab Sodium Chloride (Flush - Normal Saline) 10 ml IVF Q12HR [facility] Last Admin: 09/11/17 10:35 Dose: 10 ml Sodium Chloride (Flush - Normal Saline) 10 ml IVF PRN PRN PRN Reason: Saline Flush
[2017-09-11] MEDS ORDERED: OLANZapine 2.5 MG TAB PO SCH (11:45)
[2017-09-11] MEDS ORDERED: Zolpidem Tartrate 5 MG TAB PO SCH ×2 (12:15→21:00)
[2017-09-11] MEDS ORDERED: Vancomycin HCl 1 GM in Premix Bag 1 BAG IVPB SCH (12:30)
[2017-09-11] MEDS ORDERED: Acetaminophen 325 MG TAB PO PRN (13:54)
[2017-09-11] MEDS ORDERED: Calcium Carbonate 500 MG ChewTAB PO PRN (13:55)
[2017-09-11] MEDS ORDERED: Bisacodyl 5 MG TAB PO PRN (13:55)
[2017-09-11] MEDS ORDERED: Ondansetron HCl/PF 4 MG/2 ML Vial IVP PRN (13:55)
[2017-09-11] MEDS ORDERED: Dextrose 5% in Water 1,000 ML IV PRN (13:59)
[2017-09-11] MEDS ORDERED: Dextrose 50% Abboject 50 ML SYRINGE SLOW IVP PRN (13:59)
[2017-09-11] MEDS ORDERED: HumaLOG 300 UNITS/3 ML VIAL SC PRN ×2 (13:59→14:04)
[2017-09-11] MEDS ORDERED: Nitroglycerin 0.4 MG TAB (25 Tab Bottle) PO PRN (14:03)
[2017-09-11] MEDS ORDERED: Senokot 8.6 MG TAB PO PRN (14:03)
[2017-09-11 14:36] VITALS: BMI 35.4
[2017-09-11 21:25] LABS: Vancomycin, Trough 8.3 ug/mL
[2017-09-11] MEDS ORDERED: Vancomycin HCl 1.75 GM in Sodium Chloride 0.9% 500 ML IVPB SCH ×4 (22:00)
[2017-09-11] MEDS: Zolpidem Tartrate 5 MG TAB PO SCH (22:29)
[2017-09-12] MEDS ORDERED: OLANZapine 5 MG TAB PO SCH (09:00)
[2017-09-12] MEDS: Lisinopril 2.5 MG TAB PO SCH (09:34)
[2017-09-12] MEDS: Allopurinol 100 MG TAB PO SCH ×3 (09:36→21:33)
[2017-09-12] MEDS: Carvedilol 6.25 MG TAB PO SCH ×2 (09:36→21:34)
[2017-09-12] MEDS: Furosemide 40 MG TAB PO SCH (09:37)
[2017-09-12] MEDS: predniSONE 5 MG TAB PO SCH (09:40)
[2017-09-12] MEDS: Clopidogrel Bisulfate 75 MG TAB PO SCH (09:43)
[2017-09-12] MEDS: Famotidine 20 MG TAB PO SCH ×2 (09:43→21:35)
[2017-09-12] MEDS: Senokot S 8.6-50 MG TAB PO SCH ×2 (09:44→21:34)
[2017-09-12] MEDS: Polyethylene Glycol 3350 17 GM Packet PO SCH (09:44)
[2017-09-12] MEDS: Enoxaparin Sodium 40 MG/0.4 ML SYRINGE SC SCH (09:45)
[2017-09-12] MEDS: Nystatin Powder 15 GM BOT TOP SCH (09:54)
[2017-09-12] MEDS: Vancomycin HCl 1.75 GM in Sodium Chloride 0.9% 500 ML IVPB SCH ×2 (12:17→23:33)
--- NOTE | 2017-09-12 12:53 | PDOC.PN ---
- Subjective Encounter Start Date: 09/12/17 Encounter Start Time: 12:52 Mr. Garcia does not have any complaints. He has not had any hallucinations overnight. He notes some dyspnea, but he says this is chronic. - Objective Resuscitation Status: Resuscitation Status FULL:Full Resuscitation MAR Reviewed: Yes Vital Signs & Weight: Vital Signs (12 hours) Temp Pulse Resp BP BP Pulse Ox 09/12/17 11:54 98.1 F 88 18 132/83 98 09/12/17 11:08 98 09/12/17 11:07 88 20 98 09/12/17 09:36 137/68 09/12/17 09:34 87 137/88 09/12/17 08:00 97.5 F L 87 20 137/68 90 L 09/12/17 07:43 99 09/12/17 07:41 83 20 99 09/12/17 04:00 97.6 F 88 20 182/84 H 97 Weight Admit Weight 259 lb 3.2 oz Weight 269 lb I&O: 09/11/17 09/12/17 09/13/17 06:59 06:59 06:59 Intake Total 935 1060 Output Total 2850 Balance -1915 1060 Result Diagrams: 09/11/17 05:15 09/11/17 05:16 Additional Labs: Accuchecks 09/12/17 09/11/17 09/11/17 11:00 21:17 16:31 POC Glucose 163 H 149 H 177 H Phys Exam - Physical Examination HEENT: PERRLA Respiratory: wheezing present, clear to auscultation bilateral Cardiovascular: RRR, no significant murmur Gastrointestinal: soft, non-tender, positive bowel sounds Musculoskeletal: edema present + stage 2 decubitus, on the buttocks Neurological: non-focal Dx/Plan (1) Bacteremia Code(s): R78.81 - BACTEREMIA Status: Acute (2) Decubital ulcer Code(s): L89.90 - PRESSURE ULCER OF UNSPECIFIED SITE, UNSPECIFIED STAGE Status : Acute (3) Hallucination Code(s): R44.3 - HALLUCINATIONS, UNSPECIFIED Status: Acute (4) Obesity (BMI 30.0-34.9) Code(s): E66.9 - OBESITY, UNSPECIFIED Status: Acute (5) Toxic metabolic encephalopathy Code(s): G92 - TOXIC ENCEPHALOPATHY Status: Acute Comment: causing fall. - Plan * Hallucinations- improved- likely secondary to medications * COPD- stable Decubitus Ulcer- continue local wound care, and frequent position changes. * Bacteremia- Patient will need a total of & days of Levaquin * Deconditioning- continue PT/OT .
[2017-09-12] MEDS: OLANZapine 5 MG TAB PO SCH (15:37)
[2017-09-12] MEDS: Zolpidem Tartrate 5 MG TAB PO SCH (21:35)
[2017-09-13] MEDS: HYDROcodone/Acetaminophen 5/325 mg Tablet PO PRN ×2 (01:30→08:43)
[2017-09-13] MEDS: Nystatin Powder 15 GM BOT TOP SCH ×2 (01:34→08:42)
[2017-09-13 08:40] VITALS: BP 166/81; TEMP 98.4
[2017-09-13] MEDS: Furosemide 40 MG TAB PO SCH (08:40)
[2017-09-13] MEDS: Senokot S 8.6-50 MG TAB PO SCH (08:40)
[2017-09-13] MEDS: Carvedilol 6.25 MG TAB PO SCH (08:40)
[2017-09-13] MEDS: Clopidogrel Bisulfate 75 MG TAB PO SCH (08:41)
[2017-09-13] MEDS: OLANZapine 5 MG TAB PO SCH (08:41)
[2017-09-13] MEDS: Lisinopril 2.5 MG TAB PO SCH (08:41)
[2017-09-13] MEDS: predniSONE 5 MG TAB PO SCH (08:41)
[2017-09-13] MEDS: Famotidine 20 MG TAB PO SCH (08:41)
[2017-09-13] MEDS: Allopurinol 100 MG TAB PO SCH (08:41)
[2017-09-13] MEDS: Polyethylene Glycol 3350 17 GM Packet PO SCH (08:42)
[2017-09-13] MEDS: Enoxaparin Sodium 40 MG/0.4 ML SYRINGE SC SCH (08:42)
[2017-09-13 09:11] LABS: Vancomycin, Trough 24.6 ug/mL
--- NOTE | 2017-09-13 09:17 | PDOC.PN ---
- Subjective Encounter Start Date: 09/13/17 Encounter Start Time: 09:14 Ms. Garcia is feeling ok. He denies any further hallucinations. - Objective Resuscitation Status: Resuscitation Status FULL:Full Resuscitation MAR Reviewed: Yes Vital Signs & Weight: Vital Signs (12 hours) Temp Pulse Resp BP BP Pulse Ox 09/13/17 08:41 97 166/81 H 09/13/17 08:40 166/81 H 09/13/17 08:38 98.4 F 97 20 166/81 H 97 09/13/17 08:28 95 09/13/17 08:27 96 20 09/13/17 04:00 97.9 F 87 18 127/76 99 09/13/17 00:47 95 09/12/17 21:34 136/65 Weight Admit Weight 259 lb 3.2 oz Weight 270 lb 1.6 oz I&O: 09/12/17 09/13/17 09/14/17 06:59 06:59 06:59 Intake Total 1060 1940 Output Total 800 Balance 1060 1140 Result Diagrams: 09/11/17 05:15 09/11/17 05:16 Additional Labs: Accuchecks 09/13/17 09/12/17 09/12/17 06:04 20:33 11:00 POC Glucose 165 H 164 H 163 H 09/12/17 06:34 POC Glucose 150 H Phys Exam - Physical Examination HEENT: PERRLA Respiratory: no wheezing, no rales, no rhonchi, clear to auscultation bilateral Cardiovascular: RRR, no significant murmur Gastrointestinal: soft, non-tender, positive bowel sounds Musculoskeletal: no edema Dx/Plan (1) Bacteremia Code(s): R78.81 - BACTEREMIA Status: Acute (2) Decubital ulcer Code(s): L89.90 - PRESSURE ULCER OF UNSPECIFIED SITE, UNSPECIFIED STAGE Status : Acute (3) Hallucination Code(s): R44.3 - HALLUCINATIONS, UNSPECIFIED Status: Acute (4) Obesity (BMI 30.0-34.9) Code(s): E66.9 - OBESITY, UNSPECIFIED Status: Acute (5) Toxic metabolic encephalopathy Code(s): G92 - TOXIC ENCEPHALOPATHY Status: Acute Comment: causing fall. - Plan * Visual Hallucinations- suspect due to medications * This has resolved * COPD- stable * DM- stable * stable for discharge today, with home health.
[2017-09-13] MEDS ORDERED: Vancomycin HCl 1.25 GM in Sodium Chloride 0.9% 250 ML 250 ML IVPB SCH (10:00)
--- NOTE | 2017-09-13 18:22 | DIS ---
PRIMARY CARE PHYSICIAN: Janet Stafford DO DATE OF ADMISSION: 09/06/2017 DATE OF DISCHARGE: 09/13/2017 DISCHARGE DISPOSITION: Home with home health. DISCHARGE DIAGNOSES: 1. Toxic metabolic encephalopathy likely secondary to polypharmacy. 2. History of chronic obstructive pulmonary disease with chronic respiratory failure. 3. Cellulitis of the lower extremities. 4. Stage 2 sacral decubitus. 5. Peripheral vascular disease. 6. Chronic systolic heart failure with an ejection fraction of 40%-45%. 7. General deconditioning. 8. Hypertension. 9. Hyperlipidemia. 10. Obstructive sleep apnea. 11. Obesity with a BMI of 34.7. PROCEDURES DONE DURING ADMISSION: The patient had an MRI of the brain showing there was no signific ant intracranial pathology seen. The patient also had an echocardiogram in which there was a small pericardial effusion. There was no tamponade. The ejection fraction was 40%-45%. The patient also had a CT angiogram of the chest showing no evidence of pulmonary embolism and there was some eviden ce of arthrosclerosis. DISCHARGE MEDICATIONS: Include Ambien, please note that the dose of Ambien was decreased from 10 mg to 5 mg, prednisone 2.5 mg daily, pravastatin 40 mg at bedtime, metolazone 5 mg daily, lisinopril 2 .5 mg daily, Levaquin 500 mg p.o. daily for 5 days, [place] 5/325 one tablet 3 times a day as needed, Lasix 40 mg daily, Plavix 75 mg daily, vitamin D 4000 units daily, carvedilol 6.25 mg twice daily, D ulcolax 10 mg as needed, and allopurinol 100 mg t.i.d. CODE STATUS: FULL CODE. ALLERGIES: To NAPROSYN. HOSPITAL COURSE: Mr. Garcia is a pleasant 72-year-old gentleman, [facility] to generalized weakness. Apparently, the patient had gotten up out of the chair and fell to the carpet and could not get up. He had received some carpet burn and lacerations on his arms and legs and he attempts to try to get off of the floor. He was brought to the emergency room in [facility], where he was noted to have a creatinine of 2. He also mentioned some hallucinations of seei ng a little boy running around that was not there. He was brought in the hospital and started on IV antibiotics and IV hydration as there was concern that he had acute renal failure possibly related to sepsis. His creatinine, which initially was 2 at the time of discharge was 1.2. Cultures were n egative except for one blood culture grew multiple organisms in which was concerned that there could be a contaminant, but he was covered with antibiotics as a precaution with Levaquin and this was wh en one of my colleagues did discuss this with Dr. Bess. He also had an MRI of the brain, as well a s an echo, which were essentially negative as well as a CT angiogram. He was also evaluated by neur ology for the altered mental status and it was felt that it was likely a toxic metabolic encephalopa thy, possibly from the cellulitis and a renal failure in addition to the polypharmacy that the patie nt had been on [place] as well as some muscle relaxers and the patient's daughter says that he typical ly will sit in his recliner chair and pull his medications out of the bottles, which sit right next to the recliner sometimes not paying attention to which medications he is pulling out of the bottle, so I suspect that there could have been some inadvertent medications taken. Therefore, the patient 's mental status improved and he was subsequently able to be discharged home. He will be discharged home with home health to help him with his medications to place him into pill bottles for him to he lp prevent medication errors at home and also to help with wound care for the decubitus ulcer.
== END 2017-09-13 11:00 | disposition home health service (06) | DRG 871 ==
LOC: ERS 11:47 → 2NO 16:12 → OBSVTOIN 16:39 → UNDODISIN 09-11 13:18
PROVIDERS: ADMIT Internal Medicine; ATTEND Internal Medicine
PROC: B030ZZZ Magnetic Resonance Imaging (MRI) of Brain (ICD-10-PCS; principal; 2017-09-07)
DX: A41.9 Sepsis, unspecified organism (principal); G92 Toxic encephalopathy; N17.9 Acute kidney failure, unspecified; J96.10 Chronic respiratory failure, unspecified whether with hypoxia or hypercapnia; I24.8 Other forms of acute ischemic heart disease; E66.01 Morbid (severe) obesity due to excess calories; Z99.81 Dependence on supplemental oxygen; R44.3 Hallucinations, unspecified; L03.116 Cellulitis of left lower limb; L03.115 Cellulitis of right lower limb; J44.9 Chronic obstructive pulmonary disease, unspecified; I11.9 Hypertensive heart disease without heart failure; E78.5 Hyperlipidemia, unspecified; G47.33 Obstructive sleep apnea (adult) (pediatric); I73.9 Peripheral vascular disease, unspecified; E86.0 Dehydration; B35.6 Tinea cruris; R65.20 Severe sepsis without septic shock; F17.290 Nicotine dependence, other tobacco product, uncomplicated; Z95.5 Presence of coronary angioplasty implant and graft; Z88.8 Allergy status to other drugs, medicaments and biological substances; Z68.34 Body mass index [BMI] 34.0-34.9, adult; T50.2X5A Adverse effect of carbonic-anhydrase inhibitors, benzothiadiazides and other diuretics, initial encounter; T50.995A Adverse effect of other drugs, medicaments and biological substances, initial encounter
CPT/HCPCS: 36415; 36416; 70551; 71275; 80069; 80202; 82140; 82550; 83605; 83735; 83880; 84146; 84443; 85025; 87040; 87186; 93005; 93306; 94640; 94760; 95816; 95819; 96361; 96365; 96367; A4216; G8978-GP-CK; G8979-GP-CJ; G8987-GO-CK; G8988-GO-CI; J0696; J1650; J1956; J3370; J7050; J7620